=== PATIENT | male | born 1985 ===

== ENCOUNTER 2018-01-02 16:17 | Emergency (ER) | payer OTHER ==
[~2018-01-02] VITALS: Ht 180.3 cm; Wt 83.9 kg
[~2018-01-02 16:17] MED LIST: ACET500 PO; AMOX500 PO; CEPH500 PO; CRUTCH2 USE; CYCL10 PO; HYDACE5 PO; IBUP200 PO; IBUP600 PO; IBUP800 PO; NAPR500 PO; OXYACE5T PO; PENVK500 PO; RXCLIN PO; RXHYDACE PO; RXOXYACE PO; RXPENVK250 PO; RXTRAM50 PO; SILSUL1TC TOP; TRAM50 PO; TRAZ50 PO; Zofran Odt4 MG SL
== END 2018-01-02 16:49 | disposition home or self-care (01) ==
LOC: ER 16:17
DX: J02.9 Acute pharyngitis, unspecified (principal); F17.210 Nicotine dependence, cigarettes, uncomplicated
CPT/HCPCS: 87081; 87430; 99283; J1100

== ENCOUNTER → 2018-04-21 | Outpatient (CLI) | payer OTHER | LOC: LAB 16:14 → LAB SHORT 16:14 | DX: Z51.81 Encounter for therapeutic drug level monitoring (principal); F11.21 Opioid dependence, in remission | CPT/HCPCS: G0480 ==

== ENCOUNTER → 2018-09-18 | Outpatient (CLI) | payer OTHER ==
[2018-09-18 09:52] LABS: BASOPHILS ABSOLUTE AUTO 0.03 K/mm3 (0.00-0.23); BASOPHILS PERCENT AUTO 1 % (0-2); EOSINOPHILS ABSOLUTE AUTO 0.08 K/mm3 (0.00-0.68); EOSINOPHILS PERCENT AUTO 2 % (0-6); Hematocrit 45.7 % (37.0-53.0); Hemoglobin 15.1 g/dL (13.5-17.5); IMMATURE GRAN PERCENT AUTO 0 % (0-1); LYMPHOCYTES ABSOLUTE AUTO 1.19 K/mm3 (0.84-5.20); LYMPHOCYTES PERCENT AUTO 27 % (21-46); MONOCYTES ABSOLUTE AUTO 0.46 K/mm3 (0.16-1.47); MONOCYTES PERCENT AUTO 11 % (4-13); Mean Corpuscular HGB 26.6 pg (26.0-34.0); Mean Corpuscular Volume 81 fL (80-100); NEUTROPHILS ABSOLUTE AUTO 2.63 K/mm3 (1.96-9.15); NEUTROPHILS PERCENT AUTO 60 % (41-73); Platelet Count 193 K/mm3 (150-400); RDW Coefficient Variation 13.2 % (11.7-14.2); RDW Standard Deviation 38.2 fL (35.1-46.3); Red Blood Cell Count 5.68 M/mm3 (4.30-5.90); White Blood Cell Count 4.39 K/mm3 (4.00-11.30)
== END ==
LOC: LAB SHORT 09:49 → LAB EV 09:49
PROVIDERS: Physician Assistant
DX: R11.2 Nausea with vomiting, unspecified (principal)
CPT/HCPCS: 85025